=== PATIENT | female | born 1975 ===

== ENCOUNTER 2022-02-16 16:01 | Outpatient (REF) | payer OTHER, SELFPAY ==
--- NOTE | ~2022-02-16 | US_ITS ---
EXAMINATION: US PELVIC AND TRANSVAGINAL CLINICAL INFORMATION: Vaginal bleeding. COMPARISON: None TECHNIQUE: Ultrasound of the pelvis is performed using both transabdominal and transvaginal transducers along with Doppler. Transvaginal imaging is performed due to inadequate visualization transabdominally. FINDINGS: UTERUS: The uterus is anteverted and retroflexed measuring 11.0 x 4.8 x 6.1 cm for a volume of 170 mL. The double wall endometrial thickness could not be measured as an IUD is present. An exophytic pedunculated fundal fibroid is present measuring 7.7 x 6.6 x 8.5 cm. A smaller mural fibroid is noted on the right measuring 1.5 x 1.2 x 1.6 cm. ADNEXA: The right ovary could not be seen. The left ovary measures 2.6 x 2.0 x 1.7 cm for a volume of 4.7 mL and contains benign-appearing cyst/follicle measuring 2.2 cm. No solid masses. US/US pelvic and transvaginal IMPRESSION: Two uterine fibroids with the largest pedunculated at the fundus measuring 8.5 cm.
== END 2022-02-16 16:02 | disposition home or self-care (01) ==
LOC: HO.US 16:01
PROVIDERS: Visit Provider Nurse Practitioner Family
DX: N93.9 Abnormal uterine and vaginal bleeding, unspecified (principal); D25.9 Leiomyoma of uterus, unspecified
CPT/HCPCS: 76830; 76856